=== PATIENT | female | born 1995 | race Two or more races ===

== ENCOUNTER 2017-02-13 14:20 | Emergency (ER) | payer SELFPAY ==
[2017-02-13 14:46] VITALS: BP 97/60
--- NOTE | 2017-02-13 14:58 | PHYS DOC ---
Past Medical History Past Medical History: No Pertinent History Past Surgical History: No Surgical History Alcohol Use: None Drug Use: None Adult General Chief Complaint Chief Complaint: ANKLE PROBLEM [facility] HPI Patient is a 21 year old female presents to the emergency department with a history of falling down 6 concrete steps yesterday. Patient states that she has been able to ambulate on the foot and ankle without difficulty. Patient has abrasion noted on the fifth metatarsal area. No bleeding or discoloration noted. Patient is up to date on tetanus. Review of Systems Review of Systems Constitutional: Denies fever or chills [] Eyes: Denies change in visual acuity, redness, or eye pain [] HENT: Denies nasal congestion or sore throat [] Respiratory: Denies cough or shortness of breath [] Cardiovascular: No additional information not addressed in HPI [] GI: Denies abdominal pain, nausea, vomiting, bloody stools or diarrhea [] : Denies dysuria or hematuria [] Musculoskeletal: Denies back pain. C/o left ankle pain Integument: Denies rash or skin lesions [] Neurologic: Denies headache, focal weakness or sensory changes [] Endocrine: Denies polyuria or polydipsia [] Allergies Allergies Allergies Coded Allergies Type Severity Reaction Last Updated Verified No Known Drug Allergies 11/01/15 No Physical Exam Physical Exam Constitutional: Well developed, well nourished, no acute distress, non-toxic appearance. [] HENT: Normocephalic, atraumatic, bilateral external ears normal, oropharynx moist, no oral exudates, nose normal. [] Eyes: PERRLA, EOMI, conjunctiva normal, no discharge. [] Neck: Normal range of motion, no tenderness, supple, no stridor. [] Cardiovascular:Heart rate regular rhythm, no murmur [] Lungs & Thorax: Bilateral breath sounds clear to auscultation [] Skin: Warm, dry, no erythema, no rash. Patient with abrasion noted on the left fifth metatarsal area. No bleeding or discoloration noted. Back: No tenderness Extremities: Left lateral ankle tenderness, no cyanosis, no clubbing, ROM intact , no edema. Peripheral pulses 2+ cap refill brisk less than 2 seconds. Patient with good sensation to the toes she is able to move the toes without difficulty. Neurologic: Alert and oriented X 3, normal motor function, normal sensory function, no focal deficits noted. [] Psychologic: Affect normal, judgement normal, mood normal. [] Current Patient Data Vital Signs Vital Signs Date Time Temp Pulse Resp B/P (MAP) Pulse Ox O2 Delivery O2 Flow Rate FiO2 02/13/17 14:46 98.0 75 18 100 Room Air 98.0 EKG EKG [] Radiology/Procedures Radiology/Procedures [] Course & Med Decision Making Course & Med Decision Making Pertinent Labs and Imaging studies reviewed. (See chart for details) X-rays appear to be negative per Dr Rodriguez. Patient will be discharged home in stable condition she'll be placed in Karl wrap and an Air-Stirrup splint. Recommended following up with orthopedic in 7-10 days if she continues to have pain and discomfort. She may wear the Karl wrap for the next 5-7 days in the Air- Stirrup splint for the next 7-10 days. Ibuprofen for pain and discomfort. Ice packs on 20 minutes off 20 minutes several times a day. Elevation as much as possible. Patient was provided with signs and symptoms to return back to emergency department. Patient agrees with discharge instructions treatment regimens and follow-up recommendations. [] Dragon Disclaimer Dragon Disclaimer This electronic medical record was generated, in whole or in part, using a voice recognition dictation system. Departure Departure Impression: Primary Impression: Fall Additional Impression: Left ankle sprain Disposition: 01 HOME, SELF-CARE Condition: STABLE Referrals: NO PCP (PCP) Patient Instructions: Ankle Sprain, Fall Prevention and Home Safety, Easy-to- Read Additional Instructions: Activity as tolerated Ibuprofen for pain and discomfort Elevation as much as possible Ice packs on 20 minutes and off 20 minutes several times a day Wear the karl wrap for the next 5-7 days and wear the the air stirrup splint for 7-10 days Followup with orthopedic in 7-10 days Return to emergency department as needed for signs and symptoms that become worse. Scripts No Active Prescriptions or Reported Meds Problem Qualifiers [employer]IVE February 13, 2017 14:58
--- NOTE | 2017-02-13 15:03 | RAD ---
Left ankle, 3 views, 02/13/2017: History: Fall, pain No fracture or dislocation is identified. There is mild soft tissue swelling over the lateral malleolus. IMPRESSION: No acute bony abnormality is detected.
== END 2017-02-13 15:20 | disposition home or self-care (01) ==
LOC: ER 14:20
DX: S93.402A Sprain of unspecified ligament of left ankle, initial encounter (principal); W10.9XXA Fall (on) (from) unspecified stairs and steps, initial encounter; Y93.89 Activity, other specified; Y92.89 Other specified places as the place of occurrence of the external cause; Y99.8 Other external cause status
CPT/HCPCS: 73610; 99284

== ENCOUNTER 2017-12-02 11:37 | Inpatient (IN) | payer SELFPAY ==
[2017-12-02] MEDS ORDERED: ceFAZolin 2GM PREMIX 2 GM/50 ML BAG IV (12:00)
[2017-12-02 12:12] LABS: BILIRUBIN,URINE SMALL (NEG); CLARITY,URINE CLEAR; COLOR,URINE AMBER; GLUCOSE,URINE NEGATIVE (NEG); NITRITE,URINE NEGATIVE (NEG); PH,URINE 6.5; PROTEIN,URINE NEGATIVE (NEG-TRACE); UROBILINOGEN,URINE 0.2 mg/dL (0.2 mg/dL)
[2017-12-02 12:16] LABS: AMNIO PT POSITIVE; NEG OBC AMNIO NEG; POS OBC AMNIO POS
[2017-12-02 12:17] LABS: AMPHETAMINE/METHAMPHETAMINE NEG (NEG); BARBITURATES NEG (NEG); BENZODIAZEPINES NEG (NEG); CANNABINOIDS POS (NEG); COCAINE NEG (NEG); ETHANOL, URINE NEG (NEG); METHADONE NEG (NEG); OPIATES NEG (NEG); PHENCYCLIDINE NEG (NEG)
[2017-12-02 12:26] LABS: RBC,URINE OCC /HPF (0-2)
[2017-12-02 12:27] LABS: BACTERIA,URINE MODERATE /HPF (0-FEW); SQUAMOUS EPITHELIAL CELL,UR MANY /LPF; WBC,URINE 20-40 /HPF (0-4)
[2017-12-02 12:48] LABS: ADD MAN DIFF? NO
[2017-12-02] MEDS: IV RINGERS,LACTATED 1000ML 1,000 ML IV ×4 (12:54→21:07)
[2017-12-02 13:08] LABS: BASO % 0 % (0-3); EOS % 1 % (0-3); HEMATOCRIT 30.7 % (36.0-47.0); HEMOGLOBIN 10.2 g/dL (12.0-15.5); LYMPH # 1.1 x10^3/uL (1.0-4.8); LYMPH % 14 % (24-48); MEAN CORPUSCULAR HEMOGLOBIN 27 pg (25-35); MEAN CORPUSCULAR HGB CONC 33 g/dL (31-37); MEAN CORPUSCULAR VOLUME 81 fL (79-100); MONO # 0.5 x10^3/uL (0.0-1.1); MONO % 6 % (0-9); NEUT # 6.2 x10^3uL (1.8-7.7); NEUT % 79 % (31-73); PLATELET COUNT 183 x10^3/uL (140-400); RED BLOOD COUNT 3.81 x10^6/uL (3.50-5.40); RED CELL DISTRIBUTION WIDTH 16.1 % (11.5-14.5); WHITE BLOOD COUNT 7.8 x10^3/uL (4.0-11.0)
[2017-12-02] MEDS ORDERED: OXYTOCIN 10 UNIT/ML VIAL. ×2 (13:35→14:50)
[2017-12-02] MEDS ORDERED: MORPHINE PF 5 MG/10 ML VIAL. (13:35)
[2017-12-02] MEDS: CITRIC ACID/SODIUM CITRATE 30 ML SOLUTION. PO (13:35)
[2017-12-02] MEDS ORDERED: fentaNYL PF VIAL 100 MCG/2 ML VIAL (13:36)
[2017-12-02] MEDS ORDERED: METOCLOPRAMIDE HCL 10 MG/2 ML VIAL. (13:37)
[2017-12-02] MEDS ORDERED: FAMOTIDINE 20 MG/2 ML VIAL (13:37)
[2017-12-02] MEDS ORDERED: ONDANSETRON PF 4 MG/2 ML VIAL. (13:37)
[2017-12-02] MEDS ORDERED: PHENYLEPHRINE 10 MG/ML VIAL. (13:38)
[2017-12-02] MEDS ORDERED: HYDROCORTISONE 1% TOPICAL OINTMENT 30GM TUBE. TP (13:45)
[2017-12-02] MEDS ORDERED: diphenhydrAMINE ORAL ELIXIR 12.5 MG/5 ML ML PO (13:45)
[2017-12-02] MEDS ORDERED: 0.9 % SODIUM CHLORIDE 10 ML DISP.SYRIN. IV (13:45)
[2017-12-02] MEDS ORDERED: DOCUSATE SODIUM 100 MG CAPSULE. PO (13:45)
[2017-12-02] MEDS ORDERED: MMR per PROTOCOL. MC (13:45)
[2017-12-02] MEDS ORDERED: ZOLPIDEM 5 MG TABLET. PO (13:45)
[2017-12-02] MEDS ORDERED: OXYTOCIN 30 UNIT/500 ML PREMIX 500 ML IV (13:45)
[2017-12-02] MEDS ORDERED: MAG HYDROX/ALUMINUM HYD/SIMETH 30 ML ORAL.SUSP PO (13:45)
[2017-12-02] MEDS ORDERED: ONDANSETRON PF 4 MG/2 ML VIAL. IV (13:45)
[2017-12-02] MEDS: KETOROLAC 30 MG/ML INJ. IV (16:31)
[2017-12-02] MEDS: IBUPROFEN 600 MG TABLET. PO (18:00)
[2017-12-03 01:14] LABS: HIV ANTIBODY Non Reactive (Non Reactive)
[2017-12-03 01:14] LABS: HEP B SURFACE ABDY Non Reactive (.)
[2017-12-03 02:18] LABS: RUBELLA IGG ANTIBODY 1.08 index (Immune >0.99)
[2017-12-03] MEDS: KETOROLAC 30 MG/ML INJ. IV (02:23)
[2017-12-03] MEDS: IBUPROFEN 600 MG TABLET. PO ×4 (06:00→18:11)
[2017-12-03] MEDS: oxyCODONE/APAP 5/325 1 TAB TABLET PO ×4 (06:18→23:18)
[2017-12-03 06:19] LABS: RPR Non Reactive (Non Reactive)
[2017-12-03] MEDS: FERROUS SULFATE 325 MG TABLET. PO ×2 (08:00)
[2017-12-04] MEDS: IBUPROFEN 600 MG TABLET. PO ×4 (05:18→23:52)
[2017-12-04] MEDS: oxyCODONE/APAP 5/325 1 TAB TABLET PO ×4 (05:18→20:44)
[2017-12-04] MEDS ORDERED: INFLUENZA VAX SCREEN BY RX. MC (06:30)
[2017-12-04] MEDS: MAGNESIUM HYDROXIDE 2,400 MG/30 ML ORAL.SUSP. PO (09:47)
[2017-12-04] MEDS: DIPHTH,PERTUSS(ACELL),TET TOX 0.5 ML DISP.SYRIN. VAX IM (09:53)
[2017-12-04] MEDS: FLU VACC QS2017-18 (36MOS+)/PF 0.5 ML SYRINGE. VAX IM (10:19)
[2017-12-05] MEDS: oxyCODONE/APAP 5/325 1 TAB TABLET PO ×3 (01:45→12:10)
[2017-12-05] MEDS: IBUPROFEN 600 MG TABLET. PO ×2 (05:58→12:10)
== END 2017-12-05 16:49 | disposition home or self-care (01) | DRG 766 ==
LOC: 3 SO LND 11:37 → 3 NORTH 19:00
PROC: 10D00Z1 Extraction of Products of Conception, Low, Open Approach (ICD-10-PCS; principal; 2017-12-02)
DX: O34.211 Maternal care for low transverse scar from previous cesarean delivery (principal); O69.81X0 Labor and delivery complicated by cord around neck, without compression, not applicable or unspecified; Z3A.39 39 weeks gestation of pregnancy; Z37.0 Single live birth
CPT/HCPCS: 36415; 80307; 81001; 84112; 85025; 86593; 86703; 86706; 86762; 86850; 86900; 86901; 87086; 90686; 90715; G0378; J0690; J1885; J2270; J2405; J2590; J2765; J3010; J7120; S0028

== ENCOUNTER 2020-09-22 07:31 | Emergency (ER) | payer SELFPAY ==
[~2020-09-22] VITALS: Ht 165.1 cm; Wt 93.1 kg
[~2020-09-22 07:31] MED LIST: CEFP200T PO; DOXY1TAB3 PO
[2020-09-22 07:41] VITALS: BP 128/67
[2020-09-22] MEDS: ACETAMINOPHEN/CODEINE 300/30MG TABLET. PO ONE (07:54)
[2020-09-22] MEDS ORDERED: AMOX1TAB61 PO (07:56)
[2020-09-22] MEDS ORDERED: ACET1TAB33 PO (07:56)
--- NOTE | 2020-09-22 07:56 | ED.ADGEN ---
Past Medical History Past Medical History: No Pertinent History Past Surgical History: Other Additional Past Surgical Histo: TUMOR REMOVAL THROAT Smoking Status: Former Smoker Alcohol Use: None Drug Use: None General Adult EDM: Chief Complaint: DENTAL PROBLEM HPI: HPI: Patient is a 24 year old female coming in for left lower dental pain. Patient states she had had an injury to that tooth years ago a piece of broke off at the eye problems. Is currently in her second trimester . States over the past week to week and a half she has had increasing pain to is making it difficult to eat and sleep. Has an appointment with a dentist but is not for a week from now. Patient came in because the pain and sleep. Is been taking Tylenol. Denies any purulent drainage or difficulty swallowing. States she otherwise been wellness headaches, cough, vomiting or diarrhea Review of Systems: Review of Systems: Negative other than HPI Current Medications: Current Medications Medications (Trade) Dose Ordered Sig/Tolu Start Time Stop Time Status Last Admin Dose Admin Acetaminophen/ Codeine Phosphate (Tylenol #3) 1 tab 1X ONCE 09/22/20 08:00 09/22/20 08:01 UNV Allergies: Allergies: Allergies Coded Allergies Type Severity Reaction Last Updated Verified No Known Drug Allergies 11/01/15 No Physical Exam: PE: Constitutional: Well developed, well nourished, no acute distress, non-toxic appearance. [] HENT: Normocephalic, atraumatic, bilateral external ears normal, oropharynx moist, no oral exudates, nose normal. [] Left lower molar break, gingival swelling surrounding it, no noted dental caries Eyes: PERRLA, EOMI, conjunctiva normal, no discharge. [] Neck: Normal range of motion, no tenderness, supple, no stridor. [] Cardiovascular:Heart rate regular rhythm, no murmur [] Lungs & Thorax: Bilateral breath sounds clear to auscultation [] Abdomen: Bowel sounds normal, soft, no tenderness, no masses, no pulsatile masses. [] Skin: Warm, dry, no erythema, no rash. [] Back: No tenderness, no CVA tenderness. [] Extremities: No tenderness, no cyanosis, no clubbing, ROM intact, no edema. [] Neurologic: Alert and oriented X 3, normal motor function, normal sensory function, no focal deficits noted. [] Psychologic: Affect normal, judgement normal, mood normal. [] Current Patient Data: Vital Signs: Vital Signs Date Time Temp Pulse Resp B/P (MAP) Pulse Ox O2 Delivery O2 Flow Rate FiO2 09/22/20 07:41 98.6 93 20 128/67 (87) 99 Room Air 98.6 EKG: EKG: [] Heart Score: Risk Factors: Risk Factors: DM, Current or recent (<one month) smoker, HTN, HLP, family history of CAD, obesity. Risk Scores: Score 0 - 3: 2.5% MACE over next 6 weeks - Discharge Home Score 4 - 6: 20.3% MACE over next 6 weeks - Admit for Clinical Observation Score 7 - 10: 72.7% MACE over next 6 weeks - Early Invasive Strategies Radiology/Procedures: Radiology/Procedures: [] Course & Med Decision Making: Course & Med Decision Making Pertinent Labs and Imaging studies reviewed. (See chart for details) [] Dragon Disclaimer: Dragon Disclaimer: This electronic medical record was generated, in whole or in part, using a voice recognition dictation system. Departure Departure Impression: Primary Impression: Dental infection Disposition: 01 DC HOME SELF CARE/HOMELESS Condition: STABLE Referrals: UNKNOWN PCP NAME (PCP) Patient Instructions: Dental Abscess Scripts Acetaminophen With Codeine (ACETAMINOPHEN-COD #3 TABLET) 1 Each Tablet 1 TAB PO PRN Q6HRS PRN for PAIN for 2 Days, #8 TAB Prov: SHELLEY ROTH MD 09/22/20 Amoxicillin/Potassium Clav (AUGMENTIN 875-125 TABLET) 1 Each Tablet 1 TAB PO Q12HR for antibiotic for 7 Days, #14 TAB Prov: SHELLEY ROTH MD 09/22/20 SHELLEY ROTH MD Sep 22, 2020 07:56
== END 2020-09-22 08:08 | disposition home or self-care (01) ==
LOC: ER 07:31
DX: O21.9 Vomiting of pregnancy, unspecified (principal); K04.7 Periapical abscess without sinus; K08.89 Other specified disorders of teeth and supporting structures; Z98.890 Other specified postprocedural states; Z87.891 Personal history of nicotine dependence
CPT/HCPCS: 99283

== ENCOUNTER → 2021-01-06 | Outpatient (CLI) | payer SELFPAY ==
[~2021-01-06] MED LIST changes: +ACET1TAB33 PO; +AMOX1TAB61 PO; +DOCU-109 PO; +FERR325T14 PO; +IBUP-1060 PO; +OXYC1TAB15 PO
== END ==
LOC: LAB 11:43
PROVIDERS: ATTEND Obstetrics & Gynecology
DX: Z01.812 Encounter for preprocedural laboratory examination (principal); Z20.822 Contact with and (suspected) exposure to COVID-19
CPT/HCPCS: U0003

== ENCOUNTER 2021-06-12 10:38 | Emergency (ER) | payer SELFPAY ==
[~2021-06-12] VITALS: Ht 165.1 cm; Wt 94.8 kg
--- NOTE | 2021-06-12 12:33 | PHYS DOC ---
Past Medical History Past Medical History: No Pertinent History Past Surgical History: Other Additional Past Surgical Histo: TUMOR REMOVAL THROAT Smoking Status: Never Smoker Alcohol Use: Occasionally Drug Use: None General Adult EDM: Chief Complaint: COUGH HPI: HPI: Patient is a 25 year old female presents to the emergency department chief complaint of cough and congestion with sore throat since this past Saturday. Patient denies fever or chills, denies loss of taste or loss of smell, denies ear pain. Denies chest pain or shortness of breath. Patient reports she is coughing up yellow sputum large amount. Patient denies cigarette smoking, denies alcohol consumption, reports smoking marijuana occasionally. Patient denies receiving the Covid 19 virus vaccination series, denies known contact with COVID-19 virus infected individuals. States she does not believe she has a COVID-19 virus and is not seeking a test today, patient believes she may have pneumonia or bronchitis. Patient reports her last menstrual cycle May 14 with normal duration of flow. Patient denies other physical complaints or physical concerns. Review of Systems: Review of Systems: 14 body systems of review of systems have been reviewed. See HPI for pertinent positives and negative responses, otherwise all other systems are negative, nonpertinent or noncontributory. Constitutional: Negative except as outlined in HPI above. Skin: Negative except as outlined in HPI above. Eyes: Negative except as outlined in HPI above. HENT: Negative except as outlined in HPI above. Respiratory: Negative except as outlined in HPI above. Cardiovascular: Negative except as outlined in HPI above. GI: Negative except as outlined in HPI above. : Negative except as outlined in HPI above. Musculoskeletal: Negative except as outlined in HPI above. Integument: Negative except as outlined in HPI above. Neurologic: Negative except as outlined in HPI above. Endocrine: Negative except as outlined in HPI above. Lymphatic: Negative except as outlined in HPI above. Psychiatric: Negative except as outlined in HPI above. Heart Score: C/O Chest Pain: No Risk Factors: Risk Factors: DM, Current or recent (<one month) smoker, HTN, HLP, family history of CAD, obesity. Risk Scores: Score 0 - 3: 2.5% MACE over next 6 weeks - Discharge Home Score 4 - 6: 20.3% MACE over next 6 weeks - Admit for Clinical Observation Score 7 - 10: 72.7% MACE over next 6 weeks - Early Invasive Strategies Allergies: Allergies: Allergies Coded Allergies Type Severity Reaction Last Updated Verified No Known Drug Allergies 06/12/21 No Physical Exam: PE: Constitutional: Well developed, well nourished, no acute distress, non-toxic appearance. 25-year-old female in no apparent distress. HENT: Normocephalic, atraumatic. No lymphadenopathy of the head or neck appreciated, oropharynx erythematous with peritonsillar edema without exudate, no postnasal drip, no uvular edema, no laryngeal edema appreciated, patient speaking in normal voice tones, no swelling of the tongue, normal dictation, no drooling, no trismus. Bilateral TMs within normal limits. Eyes: Conjunctiva normal, no discharge. Neck: Normal range of motion, no stridor. No meningismus signs, no nuchal rigidity. Cardiovascular: No cyanosis appreciated, distal cap refill less than 2 seconds. Lungs & Thorax: Patient is in no respiratory distress, no audible adventitious lung sounds appreciated. No adventitious lung sounds appreciated per auscultation, all lung candelario clear Abdomen: Nontender, no abnormalities noted. Skin: Warm, dry, no erythema, no rash. Back: No tenderness, no deformities. Extremities: No tenderness, no cyanosis, no clubbing, ROM intact, no edema. Neurologic: Alert and oriented X 3, normal motor function, normal sensory function, no focal deficits noted. Psychologic: Affect normal, judgement normal, mood normal. Current Patient Data: Labs: Laboratory Tests Test 06/12/21 12:15 POC Urine HCG, Qualitative Hcg negative (Negative) Vital Signs: Vital Signs Date Time Temp Pulse Resp B/P (MAP) Pulse Ox O2 Delivery O2 Flow Rate FiO2 06/12/21 11:53 99.1 98 24 114/64 (81) 99 Room Air 99.1 EKG: EKG: [] Radiology/Procedures: Radiology/Procedures: [] Course & Med Decision Making: Course & Med Decision Making Pertinent Labs and Imaging studies reviewed. (See chart for details) 25-year-old female, vital signs reviewed, presents emergency department concerning sore throat with cough the past 4 days. Physical examination concerning for viral pharyngitis with bronchitis versus bacterial pharyngitis, there is a low probability of Covid infection. Will order rapid strep testing with Covid virus testing., Chest x-ray. Chest x-ray negative for acute pulmonary process, patient's COVID-19 virus rapid test negative, rapid strep negative. The patient is not per urine test. The patient remains afebrile, in no apparent distress, is nontoxic in appearance. Discussed with patient most likely bronchitis URI with viral pharyngitis, discussed with patient home care with plenty of p.o. fluids, [id number] cough and cold medications, Tylenol and/or ibuprofen for aches and pains, strict return to ER precautions or concerns, follow-up with PCP this week. Patient is amenable to ED discharge planning. Discussed with the patient all findings and diagnostic testing as well as the need to follow-up with their primary care provider for further evaluation and treatment or return to the ED if any new or worsening symptoms. Strict return precautions were also discussed at length, the patient voiced understanding and agreement with the discharge planning. The patient was nontoxic in appearance, in no apparent distress, and hemodynamically stable at the time of disposition. Parris Disclaimer: Parris Disclaimer: This electronic medical record was generated, in whole or in part, using a voice recognition dictation system. Departure Departure Impression: Primary Impression: Bronchitis Additional Impressions: Upper respiratory infection Qualified Codes: J06.9 - Acute upper respiratory infection, unspecified Pharyngitis Qualified Codes: J02.9 - Acute pharyngitis, unspecified Disposition: 01 HOME / SELF CARE / HOMELESS Condition: GOOD Referrals: UNKNOWN PCP NAME (PCP) Patient Instructions: Bronchitis, Upper Respiratory Infection, Adult, Viral Pharyngitis Additional Instructions: You were seen today for cough and sore throat since this past Saturday. A COVID- 19 virus test was done today, this was a rapid test, it was negative for the COVID-19 virus. A strep throat test was done today, you do not have strep throat. A chest x-ray was done, there were no signs of pneumonia or other concerning respiratory diseases. As we discussed at length, this is most likely a viral presentation, please continue to drink plenty of fluids, use [id number] cough and cold medications, see your primary care physician this week for ongoing symptoms, return to the emergency department for worsening symptoms or other concerns. Thank you for visiting our Emergency Department. It was a pleasure taking care of you today in the emergency department and we appreciate you trusting us with your care. If any additional problems come up don't hesitate to return to visit us. Please follow up with your primary care provider so they can plan additional care if needed and know about the problem that you had. If symptoms worsen come back to the Emergency Department. Any concerning symptoms that start such as chest pain, shortness of air, weakness or numbness on one side of the body, running high fevers or any other concerning symptoms return to the ER. EMERGENCY DEPARTMENT GENERAL DISCHARGE INSTRUCTIONS Thank you for coming to [facility] Emergency Department (ED) today and trusting us with you care. We trust that you had a positive experience in our Emergency Department. If you wish to speak to the department management, you may call the Director at [phone]. YOUR FOLLOW UP INSTRUCTIONS ARE FOLLOWS: 1. Do you have a private Doctor? If you do not have a private doctor, please ask for a resource list of physicians or clinics that may be able to assist you with follow up care. 2. The Emergency Physicain has interpreted your x-rays. The X-Ray specialist will also review them. If there is a change in the findings, you will be notified in 48 hours when at all possible. 3. A lab test or culture has been done, your results will be reviewed and you will be notified if you need a change in treatment. ADDITIONAL INSTRUCTIONS AND INFORMATION: 1. Your care today has been supervised by a physician who is specially trained in emergency care. Many problems require more than one evaluation for a complete diagnosis and treatment. We recommend that you schedule your follow up appointment as recommended to ensure complete treatment of you illness or injury. If you are unable to obtain follow up care and continue to have a problem, or if your condition worsens, we recommend that you return to the ED. 2. We are not able to safely determine your condition over the phone nor are we able to give sound medical advice over the phone. For these safety reasons, if you call for medical advice we will ask you to come to the ED for further evaluation. 3. If you have any questions regarding these discharge instructions please call the ED at [phone]. SAFETY INFORMATION: In the interest of safety, wellness, and injury prevention; we encourage you to wear your sealbelt, if you smoke; quite smoking, and we encourage family to use a protective helmet for bicycling and other sporting events that present an increased risk for head injury. IF YOUR SYMPTOMS WORSEN OR NEW SYMPTOMS DEVELOP, OR YOU HAVE CONCERNS ABOUT YOUR CONDITION; OR IF YOUR CONDITION WORSENS WHILE YOU ARE WAITING FOR YOUR FOLLOW UP APPOINTMENT; EITHER CONTACT YOUR PRIMARY CARE DOCTOR, THE PHYSICIAN WHOSE NAME AND NUMBER YOU WERE GIVEN, OR RETURN TO THE ED IMMEDIATELY. ALESSANDRA KOCH APRN Jun 12, 2021 12:33
--- NOTE | 2021-06-12 12:35 | RAD ---
EXAM: Chest, single view. HISTORY: Cough. Congestion. COMPARISON: None. FINDINGS: A frontal view of the chest is obtained. There is no infiltrate, pleural effusion or pneumo thorax. The heart is normal in size. IMPRESSION: No acute pulmonary finding. Electronically signed by: Karen Cano MD (06/12/2021 12:32 PM) [id number]
[2021-06-12 14:11] VITALS: BP 114/64
--- NOTE | 2021-06-13 17:59 | NUR ---
IP: Attempted to contact pt concerning covid results. No answer, no voicemail.
--- NOTE | 2021-06-15 12:24 | NUR ---
IP: Informed pt of negative covid test. Pt verbalized understanding.
== END 2021-06-12 14:11 | disposition home or self-care (01) ==
LOC: ER 10:38
DX: J40 Bronchitis, not specified as acute or chronic (principal); Z20.822 Contact with and (suspected) exposure to COVID-19; J02.9 Acute pharyngitis, unspecified
CPT/HCPCS: 71045; 81025; 87070; 87426; 87880; 99284; U0003; U0005